=== PATIENT | female | born 1985 | race African-American/Black ===

== ENCOUNTER 2024-09-28 11:21 | Emergency (ER) | payer OTHER ==
[2024-09-28] MEDS: DEXTROSE 50%-WATER - 25 GM/50 ML VIAL IVPUSH ONE (11:30)
[2024-09-28 11:41] VITALS: BMI 24.0
[2024-09-28 11:46] LABS: ABSOLUTE IMMATURE GRANULOCYTES 0.14 x10^3/uL (0.0-0.031); BASOPHILS # 0.04 x10^3/uL (0.01-0.08); EOSINOPHIL % 1.1 % (0.7-5.8); EOSINOPHILS # 0.12 x10^3/uL (0.04-0.36); HEMATOCRIT 36.7 % (34.1-44.9); HEMOGLOBIN 11.2 g/dL (11.2-15.7); MCHC 30.5 g/dl (32.2-35.5); MEAN CELL VOLUME 93.6 fl (79.4-94.8); MEAN PLT VOLUME 10.8 fl (9.4-12.3); MONOCYTE # 1.15 x10^3/uL (0.24-0.86); MONOCYTE % 10.7 % (4.7-12.5); PLATELET COUNT # 263 x10^3/uL (182-369); RDW 17.8 % (12.1-16.8)
[2024-09-28] MEDS: LACTATED RINGERS SOLUTION 1,000 ML IV STA (11:55)
[2024-09-28 12:00] LABS: ACTIVATED PTT 30.9 SECONDS (25.2-36.5); INR 0.99 (0.83-1.09); PROTHROMBIN TIME (PATIENT) 10.8 SEC (9.7-13.0)
[2024-09-28] MEDS ORDERED: ACETAMINOPHEN 325 MG TABLET (FP) ONE (12:03)
[2024-09-28 12:05] LABS: CHLORIDE 100 mmol/L (98-107); POTASSIUM 5.6 mmol/L (3.5-5.1); SODIUM 133 mmol/L (136-145)
[2024-09-28] MEDS: ACETAMINOPHEN 500 MG TABLET (FP) PO ONE (12:05)
[2024-09-28 12:07] LABS: ANION GAP 8 mmol/L (4-13); BLOOD UREA NITROGEN 3.8 mg/dL (7-18); CALCIUM 8.6 mg/dL (8.5-10.1); CO2 24 mmol/L (21-32); GLUCOSE,RANDOM 67 mg/dL (74-106)
[2024-09-28 12:08] LABS: ALBUMIN 2.7 g/dl (3.4-5.0)
[2024-09-28 12:10] LABS: SGPT/ALT 11 U/L (13-61)
[2024-09-28 12:11] LABS: CREATININE 0.6 mg/dL (0.55-1.3); SGOT/AST 59 U/L (15-37)
[2024-09-28 12:12] LABS: BILIRUBIN,TOTAL 0.5 mg/dL (0.2-1)
[2024-09-28 12:13] LABS: TOT PROT 6.9 g/dl (6.4-8.2)
[2024-09-28 12:14] LABS: ALK PHOS 115 U/L (45-117)
[2024-09-28 13:17] LABS: URINE APPEARANCE CLEAR; URINE BILIRUBIN NEGATIVE (NEGATIVE); URINE COLOR YELLOW; URINE GLUCOSE (UA) 2+ (NEGATIVE); URINE KETONE 2+ (NEGATIVE); URINE LEUK ESTERASE NEGATIVE (NEGATIVE); URINE NITRITE NEGATIVE (NEGATIVE); URINE PROTEIN NEGATIVE (NEGATIVE); URINE UROBILINOGEN 0.2 mg/dL (0.2-1.0)
[2024-09-28] MEDS: LACTATED RINGERS SOLUTION 1000 ML INFUS.BAG IV ONE (13:51)
[2024-09-28] MEDS: DEXTROSE 50%-WATER 25 GM/50 ML DISP.SYRIN IVPUSH ONE (13:54)
[2024-09-28 15:38] VITALS: BP 107/62; PULSE 97; RESP 18; TEMP 98.2
== END 2024-09-28 16:43 | disposition home or self-care (01) ==
LOC: JER 11:21 → EDBD 11:21 → JER 15:07
PROC: 3E033GC Introduction of Other Therapeutic Substance into Peripheral Vein, Percutaneous Approach (ICD-10-PCS; principal; 2024-09-28)
PROC: 3E0337Z Introduction of Electrolytic and Water Balance Substance into Peripheral Vein, Percutaneous Approach (ICD-10-PCS; 2024-09-28)
DX: O99.810 Abnormal glucose complicating pregnancy (principal); E16.2 Hypoglycemia, unspecified; O99.891 Other specified diseases and conditions complicating pregnancy; R55 Syncope and collapse; O26.893 Other specified pregnancy related conditions, third trimester; R10.11 Right upper quadrant pain; Z3A.32 32 weeks gestation of pregnancy
CPT/HCPCS: 0241U-QW; 36415; 80053; 81003; 82962; 83605; 83690; 83735; 84100; 84484; 85025; 85610; 85730; 86850; 86900; 86901; 87086; 93005; 93010; 99284-25